=== PATIENT | male | born 1985 | race African-American/Black ===

== ENCOUNTER 2020-01-07 17:20 | Emergency (ER) | payer SELFPAY ==
[~2020-01-07] VITALS: Ht 170.2 cm; Wt 93.0 kg
[2020-01-07] MEDS ORDERED: PANTOPRAZOLE 40 MG TAB PO ONE (18:15)
[2020-01-07] MEDS ORDERED: ASPirin 81 mg TAB PO ONE (18:15)
[2020-01-07 21:35] LABS: Urine Bacteria FEW /hpf (None Seen); Urine Blood Negative /uL (Negative); Urine Hyaline Cast FEW /lpf (0 - 2); Urine Mucus FEW (None Seen); Urine Specific Gravity 1.032 (1.001-1.035); Urine WBC 1 /hpf (0 - 3)
[2020-01-07 21:35] LABS: Basophils # (auto) 0 10 ^3/uL (0-0.2); Basophils % (auto) 0.4 % (0.0-2.0); Eosinophils # (auto) 0.1 10 ^3/uL (0-0.8); Eosinophils % (auto) 1.3 % (0.0-7.0); Hematocrit 49.1 % (41.0-53.0); Hemoglobin 16.1 g/dL (13.5-17.5); Lymphocytes # (auto) 2.4 10 ^3/uL (0.4-5.4); Lymphocytes % (auto) 34.4 % (10.0-50.0); Mean Corpuscular Hemoglobin 26.9 pg (28.0-32.0); Mean Corpuscular Hgb Conc. 32.9 g/dL (32.0-36.0); Mean Corpuscular Volume 81.9 fL (80.0-100.0); Monocytes # (auto) 0.5 10 ^3/uL (0-1.3); Monocytes % (auto) 7.1 % (0.0-12.0); Neutrophils % (auto) 56.8 % (37.0-80.0); Nucleated Red Blood Cells % 0.1 %; Platelet Count (auto) 301 10^3/uL (140-450); Red Blood Cells 5.99 10^6/uL (4.5-5.90); Red Cell Distribution Width 14.4 % (11.8-14.3); White Blood Cell 7.1 10^3/uL (4.4-10.8)
[2020-01-07 21:46] LABS: Alanine Aminotransferase 40 U/L (16-61); Albumin 4.9 g/dL (3.4-5.0); Anion Gap 5 (5-15); Aspartate Aminotransferase 17 U/L (15-37); BUN/Creatinine Ratio 10.7; Blood Urea Nitrogen 15 mg/dL (7-18); Carbon Dioxide 27 mmol/L (21-32); Chloride 102 mmol/L (98-107); GFR African American 75 mL/min; GFR Non-African American 62 mL/min; Glucose 82 mg/dL (74-106); Potassium 3.6 mmol/L (3.5-5.1); Sodium 134 mmol/L (136-145)
[2020-01-07 21:49] LABS: Amphetamine Screen, Urine NEGATIVE (NEGATIVE); Barbiturate Scree,Urine NEGATIVE (NEGATIVE); Benzodiazephine Screen, Urine NEGATIVE (NEGATIVE); Cannabinoid Screen, Urine POSITIVE (NEGATIVE); Cocaine Screen, Urine NEGATIVE (NEGATIVE); Opiate Scree,Urine NEGATIVE (NEGATIVE); Phencyclidine Screen, Urine NEGATIVE (NEGATIVE)
[2020-01-07 21:50] LABS: Alkaline Phosphatase 37 U/L (45-117); Bilirubin, Total 0.4 mg/dL (0.2-1.0); Total Protein 9.4 g/dL (6.4-8.2)
[2020-01-07 22:55] VITALS: BP 130/91
== END 2020-01-07 22:57 | disposition home or self-care (01) ==
LOC: ER 17:20
DX: F41.9 Anxiety disorder, unspecified (principal); K29.70 Gastritis, unspecified, without bleeding; E86.0 Dehydration; F12.10 Cannabis abuse, uncomplicated; N18.9 Chronic kidney disease, unspecified
CPT/HCPCS: 36415; 71046; 80053; 80307; 81001; 83880; 84443; 84484; 85025; 93005

== ENCOUNTER 2020-03-08 16:38 | Emergency (ER) | payer MEDICAID, OTHER ==
[~2020-03-08] VITALS: Ht 170.2 cm; Wt 91.6 kg
[2020-03-08] MEDS ORDERED: traMADol HCL 50 MG TAB PO ONE (17:00)
[2020-03-08 17:16] VITALS: BP 135/78
[2020-03-08 17:39] LABS: Urine Bacteria NONE SEEN /hpf (None Seen); Urine Blood Negative /uL (Negative); Urine Specific Gravity 1.023 (1.001-1.035); Urine WBC 1 /hpf (0 - 3)
== END 2020-03-08 18:13 | disposition home or self-care (01) ==
LOC: ER 16:38
DX: M54.9 Dorsalgia, unspecified (principal); R10.9 Unspecified abdominal pain; R30.0 Dysuria; R50.9 Fever, unspecified; Z87.440 Personal history of urinary (tract) infections
CPT/HCPCS: 74176; 81001